=== PATIENT | female | born 1980 | race Asian ===

== ENCOUNTER 2021-12-09 00:34 | Emergency (ER) | payer MEDICAID ==
[~2021-12-09] VITALS: Ht 152.4 cm; Wt 53.2 kg
[2021-12-09 01:55] LABS: BASOPHILS # (AUTO) 0.1 X10'3 (0-0.2); BASOPHILS % (AUTO) 0.3 % (0-1); EOSINOPHILS % (AUTO) 0 % (0-6); HEMATOCRIT 40.9 % (35.0-45.0); HEMOGLOBIN 13.9 g/dl (12.0-16.0); LYMPHOCYTES # (AUTO) 0.9 X10'3 (1.1-4.8); LYMPHOCYTES % (AUTO) 3.9 % (21-51); MEAN CORPUSCULAR HEMOGLOBIN 32.2 PG (27.0-31.0); MEAN CORPUSCULAR HGB CONC 33.9 g/dL (33.0-36.5); MEAN CORPUSCULAR VOLUME 95.1 FL (78-98); MEAN PLATELET VOLUME 8.2 FL (7.4-10.4); MONOCYTES # (AUTO) 0.5 X10'3 (0-0.9); MONOCYTES % (AUTO) 2.4 % (2-12); NEUTROPHILS # (AUTO) 21.1 X10'3 (1.8-7.7); NEUTROPHILS % (AUTO) 93.4 % (42-75); PLATELET COUNT 316 X10'3 (140-440); RED CELL DISTRIBUTION WIDTH 13.5 % (11.5-14.5); WHITE BLOOD COUNT 22.6 X10'3 (4.5-11.0)
[2021-12-09 02:08] LABS: URINE HCG NEGATIVE (NEG)
[2021-12-09 02:12] LABS: ALANINE AMINOTRANSFERASE 36 U/L (12-78); ALBUMIN 3.8 G/DL (3.4-5.0); ALBUMIN/GLOBULIN RATIO 0.8 (1.1-1.5); ALKALINE PHOSPHATASE 81 IU/L (46-116); ANION GAP 16 (8-16); ASPARTATE AMINO TRANSFERASE 27 U/L (10-37); BILIRUBIN,TOTAL 0.8 MG/DL (0.1-1.0); BLOOD UREA NITROGEN 10 MG/DL (7-18); BUN/CREATININE RATIO 9.1 (6.6-38.0); CALCIUM 9.5 MG/DL (8.5-10.1); CHLORIDE 98 MMOL/L (99-107); GLUCOSE 123 MG/DL (70-104); POTASSIUM 3.3 MMOL/L (3.5-5.1); SODIUM 135 MMOL/L (135-145); TOTAL CARBON DIOXIDE 21.5 MMOL/L (24-32); TOTAL PROTEIN 8.7 G/DL (6.4-8.2); eGFR 54 ML/MIN
[2021-12-09 02:25] LABS: CLARITY,URINE SLIGHTLY CLOUDY (Clear); COLOR,URINE YELLOW (Yellow); GLUCOSE, URINE NEGATIVE (Neg); KETONES,URINE TRACE mg/dl (Neg); LEUKOCYTE ESTERASE ,URINE MODERATE (Neg); NITRITES, URINE POSITIVE (Neg); OCCULT BLOOD,URINE LARGE (Neg); PROTEIN,URINE 30 mg/dl (Neg); UROBILINOGEN,URINE 0.2 E.U/dL (0.2-1.0)
[2021-12-09 02:30] LABS: UA COLLECTION TYPE CLN CATCH MIDSTREAM
[2021-12-09 02:32] LABS: WBC,URINE TNTC /HPF (0-4)
[2021-12-09 02:33] LABS: BACTERIA,URINE 2+ /HPF (Neg); MUCUS STRANDS FEW /LPF (Neg); SQUAMOUS EPITHELIAL CELL,UR FEW /LPF (FEW)
[2021-12-09 02:37] LABS: RENAL CELLS, URINE FEW /HPF; WBC CLUMPS,URINE FEW /HPF (NEGATIVE)
[2021-12-09] MEDS ORDERED: CefTRIAXone 2gm/D5W 50ml BAG 50 ML IV ONE (02:45)
[2021-12-09] MEDS ORDERED: normal saline 1000ML IV soln IV ONE (02:45)
[2021-12-09] MEDS ORDERED: acetaminophen 325mg tablet PO STA (02:45)
[2021-12-09] MEDS ORDERED: cephalexin 250mg capsule PO ONE (03:45)
[2021-12-09] MEDS ORDERED: levoFLOXACIN 750MG TABLET PO ONE (03:45)
[2021-12-09] MEDS ORDERED: LEVO-65 PO ×2 (03:47)
[2021-12-09 04:33] VITALS: BP 92/59
[2021-12-10] MEDS ORDERED: LEVO-65 PO (15:54)
[2021-12-10] MEDS ORDERED: LIOT5TAB10 PO (15:55)
[2021-12-10] MEDS ORDERED: LEVO88TA7 PO (15:55)
== END 2021-12-09 04:36 | disposition home or self-care (01) ==
LOC: ER 00:36
DX: N12 Tubulo-interstitial nephritis, not specified as acute or chronic (principal); Z20.822 Contact with and (suspected) exposure to COVID-19; R35.0 Frequency of micturition; R10.30 Lower abdominal pain, unspecified
CPT/HCPCS: 36415; 71045; 80053; 81001; 81025; 83605; 83880; 84145; 84484; 85025; 87040; 87077; 87088; 87186; 87502; 87503; 87635; 93005; 96365; 99285; C9803; J0696; J7030

== ENCOUNTER 2021-12-10 09:10 | Inpatient (IN) | payer MEDICAID ==
[~2021-12-10] VITALS: Ht 152.4 cm; Wt 53.2 kg
[~2021-12-10 09:10] MED LIST: LEVO-65 PO
[2021-12-10] MEDS ORDERED: ringers solution, lacted 1,000 ML IV ONE (09:55)
[2021-12-10] MEDS ORDERED: meropenem inj 1 GM in normal saline 100ml IV soln 100 ML IV ONE (10:00)
[2021-12-10 10:10] LABS: BASOPHILS % (AUTO) 0.1 % (0-1); EOSINOPHILS % (AUTO) 0 % (0-6); HEMATOCRIT 40.1 % (35.0-45.0); HEMOGLOBIN 13.4 g/dl (12.0-16.0); LYMPHOCYTES # (AUTO) 0.8 X10'3 (1.1-4.8); MEAN CORPUSCULAR HEMOGLOBIN 32.3 PG (27.0-31.0); MEAN CORPUSCULAR HGB CONC 33.5 g/dL (33.0-36.5); MEAN CORPUSCULAR VOLUME 96.3 FL (78-98); MEAN PLATELET VOLUME 7.9 FL (7.4-10.4); MONOCYTES # (AUTO) 1.3 X10'3 (0-0.9); MONOCYTES % (AUTO) 4.8 % (2-12); NEUTROPHILS # (AUTO) 24.4 X10'3 (1.8-7.7); NEUTROPHILS % (AUTO) 92.1 % (42-75); PLATELET COUNT 287 X10'3 (140-440); RED BLOOD COUNT 4.17 X10'6 (4.20-5.60); RED CELL DISTRIBUTION WIDTH 13.8 % (11.5-14.5)
[2021-12-10 10:13] LABS: WHITE BLOOD COUNT 26.5 X10'3 (4.5-11.0)
[2021-12-10 10:37] LABS: ALANINE AMINOTRANSFERASE 23 U/L (12-78); ALBUMIN 3.1 G/DL (3.4-5.0); ALBUMIN/GLOBULIN RATIO 0.6 (1.1-1.5); ALKALINE PHOSPHATASE 84 IU/L (46-116); ANION GAP 15 (8-16); ASPARTATE AMINO TRANSFERASE 12 U/L (10-37); BILIRUBIN,TOTAL 0.7 MG/DL (0.1-1.0); BLOOD UREA NITROGEN 9 MG/DL (7-18); BUN/CREATININE RATIO 8.1 (6.6-38.0); CALCIUM 9.4 MG/DL (8.5-10.1); CHLORIDE 102 MMOL/L (99-107); CREATININE 1.11 MG/DL (0.40-0.90); GLUCOSE 172 MG/DL (70-104); SODIUM 137 MMOL/L (135-145); TOTAL CARBON DIOXIDE 19.8 MMOL/L (24-32); TOTAL CELLS COUNTED 100; TOTAL PROTEIN 8.1 G/DL (6.4-8.2); eGFR 54 ML/MIN
[2021-12-10 10:38] LABS: PLATELET ESTIMATE NORMAL
[2021-12-10] MEDS ORDERED: magnesium hydroxide 30ml (MOM) UD suspension PO PRN (12:35)
[2021-12-10] MEDS ORDERED: morphine 2 MG/ML inj. syringe IV PRN (12:35)
[2021-12-10] MEDS ORDERED: magnesium Cl slow-release 64mg tablet PO PRN (12:35)
[2021-12-10] MEDS ORDERED: mag hydrox/Alum hydrox/simeth 30ml oral suspension PO PRN (12:35)
[2021-12-10] MEDS ORDERED: magnesium 2GM in 50ml NS 50 ML IV PRN (12:35)
[2021-12-10] MEDS ORDERED: diphenhydrAMINE 25mg capsule PO PRN (12:35)
[2021-12-10] MEDS: potassium Cl 20mEq in NS 1,000 ML IV SCH ×2 (12:35→23:53)
[2021-12-10] MEDS ORDERED: potassium CL 10mEq/100ml bag 100 ML IV PRN (12:35)
[2021-12-10] MEDS ORDERED: acetaminophen 325mg tablet PO PRN (12:35)
[2021-12-10] MEDS ORDERED: POTASSIUM BICARB 20meq eff tab 20 MEQ TABLET.EFF PO PRN (12:35)
[2021-12-10] MEDS ORDERED: magnesium 4gm in 100ml NS 100 ML IV PRN (12:35)
[2021-12-10] MEDS: POTASSIUM BICARB 20meq eff tab 20 MEQ TABLET.EFF PO SCH (12:45)
[2021-12-10] MEDS ORDERED: LEVO-65 PO (15:54)
[2021-12-10] MEDS ORDERED: LIOT5TAB10 PO (15:55)
[2021-12-10] MEDS ORDERED: LEVO88TA7 PO (15:55)
[2021-12-10] MEDS: ondansetron/PF 4mg/2ml inj IV PRN (17:50)
[2021-12-10] MEDS: HYDROcodone/acetaminophen 5mg/325mg tablet PO PRN ×2 (17:50→23:49)
[2021-12-10 18:16] LABS: URINE HCG NEGATIVE (NEG)
[2021-12-10 18:18] LABS: CLARITY,URINE SLIGHTLY CLOUDY (Clear); COLOR,URINE YELLOW (Yellow); GLUCOSE, URINE NEGATIVE (Neg); KETONES,URINE 40 mg/dl (Neg); LEUKOCYTE ESTERASE ,URINE TRACE (Neg); NITRITES, URINE NEGATIVE (Neg); OCCULT BLOOD,URINE MODERATE (Neg); PH,URINE 5.5 (4.8-8.0); PROTEIN,URINE NEGATIVE (Neg); UROBILINOGEN,URINE 0.2 E.U/dL (0.2-1.0)
[2021-12-10 18:37] LABS: SQUAMOUS EPITHELIAL CELL,UR FEW /LPF (FEW); UA COLLECTION TYPE CLN CATCH MIDSTREAM
[2021-12-10 18:38] LABS: COARSE GRANULAR CAST 0-3 /LPF (NEGATIVE); HYALINE CASTS 0-3 /LPF (NEGATIVE); URINE AMPHETAMINE SCREEN NEGATIVE (Neg); URINE BARBITUATE SCREEN NEGATIVE (Neg); URINE BENZODIAZEPINES SCREEN NEGATIVE (Neg); URINE CANNABINOID SCREEN POSITIVE (Neg); URINE COCAINE SCREEN NEGATIVE (Neg); URINE METHADONE SCREEN NEGATIVE (Neg); URINE OPIATE SCREEN NEGATIVE (Neg); URINE PHENCYCLIDINE SCREEN NEGATIVE (Neg)
[2021-12-10 18:39] LABS: BACTERIA,URINE 1+ /HPF (Neg); RBC,URINE 20-50 /HPF (0-2); TRANSITIONAL EPI CELLS,URINE FEW /HPF; WBC CLUMPS,URINE FEW /HPF (NEGATIVE)
[2021-12-10] MEDS: meropenem inj 1 GM in normal saline 100ml IV soln 100 ML IV SCH (19:00)
[2021-12-10] MEDS: K and/or MAG REPLACEMENT MC SCH (20:00)
[2021-12-10] MEDS: docusate sod 100mg capsule PO SCH (20:18)
[2021-12-10] MEDS: POTASSIUM BICARB 20meq eff tab 20 MEQ TABLET.EFF PO PRN ×2 (20:22→20:23)
--- NOTE | 2021-12-10 20:28 | NUR ---
PO MEDS X2 GIVEN
[2021-12-10 21:00] VITALS: BP 127/64
--- NOTE | 2021-12-10 21:19 | NUR ---
REPORT CALLED TO FLOOR NURSE, TX TO BED 351
--- NOTE | 2021-12-10 21:20 | NUR ---
Patient in room ED 9. I have received report from ASA LOAIZA and had the opportunity to ask questions and will assume patient care when patient arrives on the unit.
[2021-12-11] VITALS: BP 110/61
[2021-12-11] MEDS: ondansetron/PF 4mg/2ml inj IV PRN ×2 (01:50→17:29)
[2021-12-11] MEDS: meropenem inj 1 GM in normal saline 100ml IV soln 100 ML IV SCH (03:09)
[2021-12-11] MEDS ORDERED: levoTHYROXINE 25mcg tablet PO SCH (07:00)
[2021-12-11 07:35] LABS: BASOPHILS % (AUTO) 0.2 % (0-1); EOSINOPHILS % (AUTO) 0.2 % (0-6); HEMATOCRIT 33.7 % (35.0-45.0); HEMOGLOBIN 11.3 g/dl (12.0-16.0); LYMPHOCYTES # (AUTO) 2.1 X10'3 (1.1-4.8); LYMPHOCYTES % (AUTO) 11.9 % (21-51); MEAN CORPUSCULAR HEMOGLOBIN 31.9 PG (27.0-31.0); MEAN CORPUSCULAR HGB CONC 33.4 g/dL (33.0-36.5); MEAN CORPUSCULAR VOLUME 95.5 FL (78-98); MEAN PLATELET VOLUME 8.6 FL (7.4-10.4); MONOCYTES # (AUTO) 1.5 X10'3 (0-0.9); MONOCYTES % (AUTO) 8.9 % (2-12); NEUTROPHILS # (AUTO) 13.7 X10'3 (1.8-7.7); NEUTROPHILS % (AUTO) 78.8 % (42-75); PLATELET COUNT 244 X10'3 (140-440); RED BLOOD COUNT 3.53 X10'6 (4.20-5.60); RED CELL DISTRIBUTION WIDTH 13.9 % (11.5-14.5); WHITE BLOOD COUNT 17.4 X10'3 (4.5-11.0)
[2021-12-11 07:47] VITALS: BP 111/78
[2021-12-11 07:53] LABS: ALANINE AMINOTRANSFERASE 17 U/L (12-78); ALBUMIN 2.4 G/DL (3.4-5.0); ALBUMIN/GLOBULIN RATIO 0.6 (1.1-1.5); ALKALINE PHOSPHATASE 73 IU/L (46-116); ANION GAP 9 (8-16); ASPARTATE AMINO TRANSFERASE 14 U/L (10-37); BILIRUBIN,TOTAL 0.6 MG/DL (0.1-1.0); BLOOD UREA NITROGEN 6 MG/DL (7-18); BUN/CREATININE RATIO 6.2 (6.6-38.0); CALCIUM 8.5 MG/DL (8.5-10.1); CHLORIDE 106 MMOL/L (99-107); CREATININE 0.97 MG/DL (0.40-0.90); GLUCOSE 90 MG/DL (70-104); POTASSIUM 4.5 MMOL/L (3.5-5.1); SODIUM 139 MMOL/L (135-145); TOTAL PROTEIN 6.4 G/DL (6.4-8.2); eGFR 63 ML/MIN
[2021-12-11] MEDS: enoxaparin 40mg/0.4ml syringe SUBCUT SCH (08:00)
[2021-12-11] MEDS: liothyronine sod 5mcg tablet PO SCH (08:04)
[2021-12-11] MEDS: docusate sod 100mg capsule PO SCH ×2 (08:05→20:04)
[2021-12-11] MEDS: levoTHYROXINE 88mcg tablet PO SCH (08:05)
--- NOTE | 2021-12-11 08:08 | NUR ---
Pt refused Lovenox. Education provided re: DVT prophylaxis. Pt states she will walk q hr in room and out of room, and will rotate ankle and bend knees frequently while in bed.
[2021-12-11] MEDS: HYDROcodone/acetaminophen 5mg/325mg tablet PO PRN ×2 (08:24→17:29)
[2021-12-11] MEDS: K and/or MAG REPLACEMENT MC SCH ×2 (09:00→19:39)
[2021-12-11] MEDS: levoFLOXACIN-Levaquin 500mg/D5 100 ML IV SCH (12:17)
[2021-12-11] MEDS: potassium Cl 20mEq in NS 1,000 ML IV SCH ×3 (12:21→23:56)
--- NOTE | 2021-12-11 12:30 | NUR ---
Patient report given, questions answered & plan of care reviewed with Madhav Sánchez RN.
[2021-12-11 12:43] VITALS: BP_SYST 107; BP_SYST 55; BP_DIAS 55
[2021-12-11] MEDS: POTASSIUM BICARB 20meq eff tab 20 MEQ TABLET.EFF PO SCH (13:04)
[2021-12-11 18:00] VITALS: BP 96/58
--- NOTE | 2021-12-11 19:00 | NUR ---
Patient in room [facility]. I have received report from SOCRATES WILKINSON and had the opportunity to ask questions and assume patient care.
[2021-12-12] MEDS: HYDROcodone/acetaminophen 5mg/325mg tablet PO PRN (01:33)
[2021-12-12] MEDS: ondansetron/PF 4mg/2ml inj IV PRN (01:34)
[2021-12-12 06:00] VITALS: BP 107/44
--- NOTE | 2021-12-12 06:31 | NUR ---
Problems reprioritized. Patient report given, questions answered & plan of care reviewed with MARIXA WILKINSON.
[2021-12-12 06:56] LABS: BASOPHILS # (AUTO) 0.1 X10'3 (0-0.2); BASOPHILS % (AUTO) 0.5 % (0-1); EOSINOPHILS % (AUTO) 0.3 % (0-6); HEMATOCRIT 33.9 % (35.0-45.0); HEMOGLOBIN 11.3 g/dl (12.0-16.0); LYMPHOCYTES # (AUTO) 2.5 X10'3 (1.1-4.8); LYMPHOCYTES % (AUTO) 22.6 % (21-51); MEAN CORPUSCULAR HEMOGLOBIN 31.5 PG (27.0-31.0); MEAN CORPUSCULAR HGB CONC 33.2 g/dL (33.0-36.5); MEAN CORPUSCULAR VOLUME 94.8 FL (78-98); MEAN PLATELET VOLUME 8.5 FL (7.4-10.4); MONOCYTES # (AUTO) 1.5 X10'3 (0-0.9); MONOCYTES % (AUTO) 13.2 % (2-12); NEUTROPHILS # (AUTO) 7.1 X10'3 (1.8-7.7); NEUTROPHILS % (AUTO) 63.4 % (42-75); PLATELET COUNT 274 X10'3 (140-440); RED BLOOD COUNT 3.58 X10'6 (4.20-5.60); RED CELL DISTRIBUTION WIDTH 13.8 % (11.5-14.5); WHITE BLOOD COUNT 11.3 X10'3 (4.5-11.0)
[2021-12-12 07:19] LABS: ALANINE AMINOTRANSFERASE 17 U/L (12-78); ALBUMIN 2.5 G/DL (3.4-5.0); ALBUMIN/GLOBULIN RATIO 0.6 (1.1-1.5); ALKALINE PHOSPHATASE 69 IU/L (46-116); ANION GAP 8 (8-16); ASPARTATE AMINO TRANSFERASE 17 U/L (10-37); BILIRUBIN,TOTAL 0.6 MG/DL (0.1-1.0); BLOOD UREA NITROGEN 8 MG/DL (7-18); BUN/CREATININE RATIO 8.8 (6.6-38.0); CALCIUM 8.8 MG/DL (8.5-10.1); CHLORIDE 106 MMOL/L (99-107); CREATININE 0.91 MG/DL (0.40-0.90); GLUCOSE 103 MG/DL (70-104); MAGNESIUM 2.5 MG/DL (1.5-2.4); POTASSIUM 4.4 MMOL/L (3.5-5.1); SODIUM 138 MMOL/L (135-145); TOTAL PROTEIN 6.7 G/DL (6.4-8.2); eGFR 68 ML/MIN
[2021-12-12] MEDS: K and/or MAG REPLACEMENT MC SCH (08:00)
[2021-12-12] MEDS: enoxaparin 40mg/0.4ml syringe SUBCUT SCH (08:00)
[2021-12-12] MEDS: potassium Cl 20mEq in NS 1,000 ML IV SCH (09:11)
[2021-12-12] MEDS: liothyronine sod 5mcg tablet PO SCH (09:12)
[2021-12-12] MEDS: levoTHYROXINE 88mcg tablet PO SCH (09:12)
[2021-12-12] MEDS: docusate sod 100mg capsule PO SCH (09:12)
[2021-12-12] MEDS: levoFLOXACIN-Levaquin 500mg/D5 100 ML IV SCH (09:13)
--- NOTE | 2021-12-12 09:30 | NUR ---
Dr Hill aware patient has had a few episodes during visit where her heart rate is 40's and this am at 0600 her HR was 36 patient was sleeping at the time and when we went to recheck patients heart rate was in the 40's but when I went into speak with patient she was tearful and heart rate was 86. Per Dr Hill no new orders at this time. Will continue to monitor patient.
[2021-12-12 10:56] VITALS: BP 133/95
[2021-12-12] MEDS: POTASSIUM BICARB 20meq eff tab 20 MEQ TABLET.EFF PO SCH (12:45)
[2021-12-12] MEDS ORDERED: LEVO-65 PO (12:58)
--- NOTE | 2021-12-12 14:26 | NUR ---
PAGER ID: [phone] MESSAGE: Pamella Surg [phone] Re: Tiffanie Rogers just confirming she is discharging today? Patient stated you were keeping her another day
--- NOTE | 2021-12-12 15:26 | NUR ---
PAGER ID: [phone] MESSAGE: Pamella Surg [phone] Re: Tiffanie Rogers please call re: confirmation of discharge, patient thought she was staying another night Addendum: 12/12/21 at 1532 by Pamella Kurtz RN Per Dr Liz mercer to discharge patient cultures back Sensitive to Levaquin for 14 days. Received one time order for Tylenol 650mg PO x1
[2021-12-12] MEDS ORDERED: acetaminophen 325mg tablet PO ONE (15:32)
--- NOTE | 2021-12-12 15:43 | NUR ---
Student Medication Administration: For this medication-pass time frame, all medication were reviewed, dispensed, administered and documented per hospital policy by Bennie Pavon, student nurse with Misti Kurtz RN.
== END 2021-12-12 16:55 | disposition home or self-care (01) | DRG 720 ==
LOC: ER 09:10 → ED HOLD 12:38 → SUR 3N 21:18
PROVIDERS: ADMIT Internal Medicine; ATTEND Internal Medicine
DX: A41.9 Sepsis, unspecified organism (principal); N12 Tubulo-interstitial nephritis, not specified as acute or chronic; E03.9 Hypothyroidism, unspecified; E87.6 Hypokalemia; B96.20 Unspecified Escherichia coli [E. coli] as the cause of diseases classified elsewhere; F17.210 Nicotine dependence, cigarettes, uncomplicated; J45.909 Unspecified asthma, uncomplicated; Z82.3 Family history of stroke; Z82.49 Family history of ischemic heart disease and other diseases of the circulatory system; Z79.899 Other long term (current) drug therapy; N39.0 Urinary tract infection, site not specified
CPT/HCPCS: 36415; 76770; 80053; 80305; 81001; 81025; 83605; 83735; 84145; 84443; 85007; 85025; 87040; 87081; 87088; 96361; 96365; 99285; G0378; J1956; J2185; J2270; J2405; J3480; J3490; J7120

== ENCOUNTER 2022-08-25 14:02 | Emergency (ER) | payer MEDICAID ==
[~2022-08-25] VITALS: Ht 154.9 cm; Wt 55.0 kg
[~2022-08-25 14:02] MED LIST changes: +LEVO88TA7 PO; +LIOT5TAB10 PO
== END 2022-08-25 15:57 | disposition home or self-care (01) ==
LOC: ER 14:02
DX: M54.2 Cervicalgia (principal); R51.9 Headache, unspecified; R11.2 Nausea with vomiting, unspecified; V87.7XXA Person injured in collision between other specified motor vehicles (traffic), initial encounter; Y93.89 Activity, other specified; Y92.89 Other specified places as the place of occurrence of the external cause; Y99.8 Other external cause status
CPT/HCPCS: 71045; 99283